=== PATIENT | female | born 1985 | race Caucasian/White ===

== ENCOUNTER 2020-05-01 07:23 | Emergency (ER) | payer SELFPAY ==
[2020-05-25 12:23] LABS: BUN 12 mg/dL (7-18); CREATININE 0.71 mg/dL (0.51-0.95)
[2020-05-25 12:24] LABS: BUN/CREAT RATIO (CALC) 16.9 RATIO
[2020-05-25 12:25] LABS: ALBUMIN 3.9 g/dL (3.4-5.0); ALKALINE PHOSHATASE 89 U/L (46-116); ALT 34 U/L (14-59); AST 39 U/L (15-37); BILIRUBIN - TOTAL 0.4 mg/dL (0.2-1.0); CHLORIDE 104 mmol/L (98-107); CO2 (BICARBONATE) 26 mmol/L (21-32); GLOBULIN (CALCULATION) 4.4 g/dL; POTASSIUM 4.1 mmol/L (3.5-5.1); TOTAL PROTEIN 8.3 g/dL (6.4-8.2)
[2020-05-25 12:28] LABS: ACETAMINOPHEN (TYLENOL) <2.0 ug/mL (10.0-30.0)
[2020-05-25 12:30] LABS: GLUCOSE 80 mg/dL (74-106)
[2020-05-25 12:32] LABS: HCT 45.8 % (37.0-47.0); HGB 14.6 g/dl (12.5-16.0); MCH 26.9 pg (25.0-31.0); MCHC 31.9 g/dL (32.0-36.0); MCV 84.5 fL (78.0-100.0); MPV 10.4 fL (6.0-9.5); PLT 253 K/uL (150-400); RBC 5.42 M/uL (4.20-5.40); RDW 13.4 % (11.5-14.0)
[2020-05-25 12:33] LABS: BASOPHIL 0.8 % (0-2); LYMPHOCYTE 41.3 % (15-48); MONOCYTE 6.7 % (0-12); NRBC 0
[2020-05-25 12:34] LABS: ECSTASY (MDMA) POSITIVE (NEGATIVE); MARIJUANA (THC) NEGATIVE (NEGATIVE)
[2020-05-25 12:35] LABS: AMPHETAMINES POSITIVE (NEGATIVE); BARBITURATES NEGATIVE (NEGATIVE); METHADONE NEGATIVE (NEGATIVE); OPIATES NEGATIVE (NEGATIVE); OXYCODONE NEGATIVE (NEGATIVE)
[2020-05-25 12:38] LABS: CLARITY CLEAR (CLEAR); COLOR YELLOW (YELLOW); GLUCOSE (U) NORMAL (NORMAL); PROTEIN NEGATIVE (NEGATIVE); SPECIFIC GRAVITY >=1.030 (1.001-1.030)
[2020-05-25 12:39] LABS: BILIRUBIN NEGATIVE (NEGATIVE); BLOOD TRACE-INTACT Ery/uL (NEGATIVE); LEUKOCYTES NEGATIVE Leu/uL (NEGATIVE); NITRITE NEGATIVE (NEGATIVE); UROBILINOGEN 0.2 mg/dL (0.2-1.0)
[2020-05-25 12:48] LABS: SQUAMOUS EPITHELIAL CELLS RARE; URINARY WBC RARE
== END 2020-05-01 11:00 | disposition home or self-care (01) ==
LOC: FER 07:23
PROVIDERS: Emergency Medicine
DX: S22.31XA Fracture of one rib, right side, initial encounter for closed fracture (principal); F19.10 Other psychoactive substance abuse, uncomplicated; F17.200 Nicotine dependence, unspecified, uncomplicated; V49.40XA Driver injured in collision with unspecified motor vehicles in traffic accident, initial encounter; Y92.410 Unspecified street and highway as the place of occurrence of the external cause
CPT/HCPCS: 36415; 70450; 71045; 71275; 72125; 80053; 80305; 81001; 85025; G0480; Q9967